=== PATIENT | male | born 1955 | race Caucasian/White ===

== ENCOUNTER 2024-06-25 10:59 | Inpatient (IN) | payer MEDICARE ==
[~2024-06-25] VITALS: Ht 177.8 cm; Wt 89.8 kg
[2024-06-25] VITALS (22 sets, daily range): BP systolic 105–127; BP diastolic 76–99; PULSE 79–141; RESP 16–25; TEMP 97.8–100.6; O2SAT 90–97
[2024-06-25] MEDS ORDERED: LEVOFLOXACIN 750MG/D5W 150ML IV ONE (11:45)
[2024-06-25 12:04] LABS: BASOPHILS # (AUTO) 0.1 (0.0-0.1); BASOPHILS % 0.8 % (0.0-1.0); EOSINOPHILS % 0.2 % (0.0-6.0); HEMOGLOBIN 13.9 g/dL (14.0-18.0); LYMPHOCYTES # (AUTO) 0.2 (1.0-3.2); LYMPHOCYTES % 3.8 % (18.0-39.1); MEAN CORPUSCULAR HEMOGLOBIN 31.1 pg (28-32); MEAN CORPUSCULAR HGB CONC 32.3 g/dL (31-35); MEAN CORPUSCULAR VOLUME 96.2 fL (81-99); MONOCYTES # (AUTO) 0.6 (0.2-0.8); MONOCYTES % 9.2 % (4.4-11.3); NEUTROPHILS # (AUTO) 5.2 (2.1-6.9); NEUTROPHILS % 85.7 % (38.7-80.0); PLATELET COUNT 227 x10e3/uL (140-360); RED BLOOD COUNT 4.47 x10e6/uL (4.3-5.7); RED CELL DISTRIBUTION WIDTH 13.1 % (11.7-14.4); WHITE BLOOD COUNT 6.08 x10e3/uL (4.8-10.8)
[2024-06-25 12:18] LABS: INR 1.29; PROTHROMBIN TIME 16.8 seconds (11.9-14.5)
[2024-06-25 12:19] LABS: PARTIAL THROMBOPLASTIN TIME 40.5 seconds (23.8-35.5)
[2024-06-25 12:28] LABS: ALBUMIN 4.2 g/dL (3.5-5.0); ALBUMIN/GLOBULIN RATIO 1.3 (0.8-2.0); ANION GAP 17.6 mmol/L (8-16); BILIRUBIN,TOTAL 0.8 mg/dL (0.2-1.2); CALCIUM 9.6 mg/dL (8.4-10.2); CREATININE, SERUM 1.06 mg/dL (0.72-1.25); POTASSIUM 3.6 mmol/L (3.5-5.1); TOTAL PROTEIN 7.5 g/dL (6.5-8.1)
[2024-06-25] MEDS: DILTIAZEM HCL 5 MG/ML 5 ML VIAL IV ONE (12:28)
[2024-06-25] MEDS: ACETAMINOPHEN 325 MG TAB PO ONE (12:33)
[2024-06-25] MEDS: METHYLPREDNISOLONE SOD SUCC 125 MG/2ML VIAL IV ONE (12:33)
[2024-06-25] MEDS: SODIUM CHLORIDE 0.9% 1000ML 1,000 ML IV ONE (12:33)
[2024-06-25] MEDS: LEVOFLOXACIN 750MG/D5W 150ML 150 ML IV ONE (12:34)
[2024-06-25 12:41] LABS: CORONAVIRUS COVID-19 AG NEGATIVE (NEGATIVE); INFLUENZA A AG POSITIVE (NEGATIVE); INFLUENZA B AG NEGATIVE (NEGATIVE)
[2024-06-25] MEDS: ALBUTEROL/IPRATROPIUM 3 ML NEB NEB ONE (12:43)
[2024-06-25] MEDS ORDERED: SODIUM CHLORIDE FLUSH 10 ML SYR INJ PRN (13:15)
[2024-06-25] MEDS ORDERED: ONDANSETRON HCL INJ 2MG/ML 2ML 2 MG/ML VIAL IV PRN (13:15)
[2024-06-25] MEDS: TRAMADOL HCL 50 MG TAB PO ONE (13:48)
[2024-06-25] MEDS: DILTIAZEM HCL 125 ML IV SCH (13:50)
[2024-06-25] MEDS ORDERED: BENZONATATE 100 MG CAP PO PRN (15:00)
[2024-06-25] MEDS: IPRATROPIUM BROMIDE 0.02% 2.5 ML NEB NEB SCH (15:00)
[2024-06-25] MEDS ORDERED: ACETAMINOPHEN 325 MG TAB PO PRN (15:00)
[2024-06-25] MEDS ORDERED: DOCUSATE SODIUM 100 MG CAP PO PRN (15:15)
[2024-06-25 17:02] LABS: BILIRUBIN,URINE NEGATIVE (NEGATIVE); CLARITY,URINE CLEAR (CLEAR); COLOR,URINE YELLOW (YELLOW); GLUCOSE, URINE NEGATIVE (NEGATIVE); KETONES,URINE 2+ (NEGATIVE); LEUKOCYTE ESTERASE ,URINE NEGATIVE (NEGATIVE); NITRITE,URINE NEGATIVE (NEGATIVE); PH,URINE 5.5 (5 - 7); PROTEIN,URINE DIPSTICK NEGATIVE (NEGATIVE); URINE UROBILINOGEN 0.2 mg/dL (0.2 - 1)
[2024-06-25 17:13] LABS: BACTERIA,URINE RARE /HPF; EPITHELIAL CELLS,URINE RARE /LPF; MUCUS,URINE FEW (RARE); RBC,URINE 0-5 /HPF (0-5); WBC,URINE (MAN) 0-5 /HPF (0-5)
[2024-06-25] MEDS: MUPIROCIN 2% OINT 22 GM TUBE TOP SCH (17:22)
[2024-06-25] MEDS: POTASSIUM CHLORIDE 20 MEQ TAB CR PO ONE (17:24)
[2024-06-25] MEDS: METOPROLOL TARTRATE 50 MG TAB PO SCH (17:25)
[2024-06-25] MEDS ORDERED: METOPROLOL TART50 MG PO (18:04)
[2024-06-25] MEDS ORDERED: DUPIXENT200 MG/1.1 (18:04)
[2024-06-25] MEDS ORDERED: ATORVASTATIN CA20 MG PO (18:04)
[2024-06-25] MEDS ORDERED: ELIQUIS5 MG PO (18:04)
[2024-06-25] MEDS: BUDESONIDE 0.5MG/2 ML NEB INH SCH (18:45)
[2024-06-25] MEDS: OSELTAMIVIR PHOSPHATE 75 MG CAP PO SCH (21:00)
[2024-06-25] MEDS: BENZONATATE 100 MG CAP PO SCH (21:00)
[2024-06-25] MEDS: ENOXAPARIN SOD INJ 60 MG/0.6 ML SYR SC SCH (21:17)
[2024-06-26] VITALS (61 sets, daily range): BP systolic 93–136; BP diastolic 71–101; PULSE 26–129; RESP 18–31; TEMP 97.6–98.4; O2SAT 89–100
[2024-06-26 06:44] LABS: BASOPHILS % 0.1 % (0.0-1.0); HEMATOCRIT 39.8 % (38.2-49.6); HEMOGLOBIN 12.8 g/dL (14.0-18.0); LYMPHOCYTES # (AUTO) 0.3 (1.0-3.2); LYMPHOCYTES % 3.3 % (18.0-39.1); MEAN CORPUSCULAR HEMOGLOBIN 30.8 pg (28-32); MEAN CORPUSCULAR HGB CONC 32.2 g/dL (31-35); MEAN CORPUSCULAR VOLUME 95.9 fL (81-99); MONOCYTES # (AUTO) 0.4 (0.2-0.8); MONOCYTES % 3.7 % (4.4-11.3); NEUTROPHILS # (AUTO) 9.1 (2.1-6.9); NEUTROPHILS % 92.5 % (38.7-80.0); PLATELET COUNT 220 x10e3/uL (140-360); RED BLOOD COUNT 4.15 x10e6/uL (4.3-5.7); RED CELL DISTRIBUTION WIDTH 13.2 % (11.7-14.4); WHITE BLOOD COUNT 9.79 x10e3/uL (4.8-10.8)
[2024-06-26 07:12] LABS: ALBUMIN 3.5 g/dL (3.5-5.0); ALBUMIN/GLOBULIN RATIO 1.3 (0.8-2.0); ANION GAP 15.7 mmol/L (8-16); BILIRUBIN,TOTAL 0.5 mg/dL (0.2-1.2); CALCIUM 9.1 mg/dL (8.4-10.2); CREATININE, SERUM 0.86 mg/dL (0.72-1.25); POTASSIUM 3.7 mmol/L (3.5-5.1); TOTAL PROTEIN 6.2 g/dL (6.5-8.1)
[2024-06-26 07:31] LABS: MAGNESIUM 1.7 MG/DL (1.3-2.1)
[2024-06-26 07:53] LABS: THYROID STIMULATING HORMONE 0.269 uIU/mL (0.350-4.940)
[2024-06-26] MEDS ORDERED: MAGNESIUM SULFATE 2GM/50ML IV ONE (09:15)
[2024-06-26] MEDS: APIXABAN 5 MG TABLET PO SCH (09:33)
[2024-06-26] MEDS: MAGNESIUM SULFATE 2GM/50ML 50 ML IV ONE (09:35)
[2024-06-26] MEDS: METOPROLOL TARTRATE 50 MG TAB PO SCH (17:12)
[2024-06-27] VITALS (43 sets, daily range): BP systolic 110–136; BP diastolic 75–105; PULSE 80–116; RESP 13–25; TEMP 97.9–98; O2SAT 92–100
[2024-06-27] MEDS: METOPROLOL TARTRATE INJ 1 MG/ML VIAL IV PRN (02:40)
[2024-06-27] MEDS ORDERED: IOPAMIDOL 370 MG/ML 100 ML INFUS..BTL INJ ONE (09:10)
[2024-06-27] MEDS ORDERED: SODIUM CHLORIDE 0.9% 250ML 250 ML ONE (15:12)
[2024-06-27] MEDS: HYDRALAZINE HCL 20 MG/ML VIAL IV PRN (17:44)
[2024-06-28] VITALS (23 sets, daily range): BP systolic 107–142; BP diastolic 85–103; PULSE 71–116; RESP 14–28; TEMP 98–98.3; O2SAT 93–100
[2024-06-28] MEDS: DIGOXIN 0.125 MG TAB PO SCH (14:40)
[2024-06-28] MEDS: ENOXAPARIN SOD INJ 60 MG/0.6 ML SYR SC SCH (20:26)
[2024-06-28] MEDS ORDERED: ENOXAPARIN SOD INJ 40 MG/0.4 ML SYR SC SCH (21:00)
[2024-06-29] VITALS (10 sets, daily range): BP systolic 121–133; BP diastolic 84–97; PULSE 93–117; RESP 18–20; TEMP 97.2–98.2; O2SAT 94–97
[2024-06-30] VITALS (14 sets, daily range): BP systolic 109–133; BP diastolic 84–109; PULSE 73–122; RESP 18–22; TEMP 97.7–98.9; O2SAT 95–100
[2024-06-30] MEDS: LEVALBUTEROL HCL SOLN NEBU 1.25 MG/3 ML NEB INH PRN (05:45)
[2024-06-30 07:10] LABS: BASOPHILS % 0.6 % (0.0-1.0); EOSINOPHILS # (AUTO) 0.1 (0.0-0.4); EOSINOPHILS % 1.6 % (0.0-6.0); HEMATOCRIT 42.8 % (38.2-49.6); HEMOGLOBIN 13.9 g/dL (14.0-18.0); LYMPHOCYTES % 19.9 % (18.0-39.1); MEAN CORPUSCULAR HGB CONC 32.5 g/dL (31-35); MEAN CORPUSCULAR VOLUME 95.5 fL (81-99); MONOCYTES # (AUTO) 0.6 (0.2-0.8); MONOCYTES % 12.6 % (4.4-11.3); NEUTROPHILS # (AUTO) 3.3 (2.1-6.9); NEUTROPHILS % 64.1 % (38.7-80.0); PLATELET COUNT 215 x10e3/uL (140-360); RED BLOOD COUNT 4.48 x10e6/uL (4.3-5.7); RED CELL DISTRIBUTION WIDTH 12.8 % (11.7-14.4); WHITE BLOOD COUNT 5.08 x10e3/uL (4.8-10.8)
[2024-06-30 07:42] LABS: ANION GAP 18.4 mmol/L (8-16); CALCIUM 8.9 mg/dL (8.4-10.2); CREATININE, SERUM 0.84 mg/dL (0.72-1.25)
[2024-06-30 07:48] LABS: POTASSIUM 3.4 mmol/L (3.5-5.1)
[2024-06-30] MEDS: POTASSIUM CHLORIDE 10MEQ EA PO ONE (10:36)
[2024-07-01] VITALS (10 sets, daily range): BP systolic 109–136; BP diastolic 62–96; PULSE 76–107; RESP 17–20; TEMP 97.8–98.6; O2SAT 93–100
[2024-07-02] VITALS (12 sets, daily range): BP systolic 100–119; BP diastolic 77–94; PULSE 51–119; RESP 18–20; TEMP 98.1–98.6; O2SAT 92–100
[2024-07-02] MEDS: BISACODYL 5 MG TAB EC PO ONE (08:42)
[2024-07-02] MEDS: PEG (High)/E-LYTE SOLN 4,000 ML BTL PO ONE (08:43)
[2024-07-03] VITALS (10 sets, daily range): BP systolic 102–125; BP diastolic 72–87; PULSE 85–111; RESP 15–22; TEMP 97.7–98.4; O2SAT 95–99
[2024-07-03 06:28] LABS: BASOPHILS % 0.8 % (0.0-1.0); EOSINOPHILS # (AUTO) 0.2 (0.0-0.4); HEMATOCRIT 40.3 % (38.2-49.6); HEMOGLOBIN 13.8 g/dL (14.0-18.0); LYMPHOCYTES # (AUTO) 1.4 (1.0-3.2); LYMPHOCYTES % 27.4 % (18.0-39.1); MEAN CORPUSCULAR HEMOGLOBIN 30.7 pg (28-32); MEAN CORPUSCULAR HGB CONC 34.2 g/dL (31-35); MEAN CORPUSCULAR VOLUME 89.6 fL (81-99); MONOCYTES # (AUTO) 0.6 (0.2-0.8); MONOCYTES % 11.8 % (4.4-11.3); NEUTROPHILS # (AUTO) 2.7 (2.1-6.9); NEUTROPHILS % 55.2 % (38.7-80.0); PLATELET COUNT 249 x10e3/uL (140-360); RED CELL DISTRIBUTION WIDTH 12.8 % (11.7-14.4); WHITE BLOOD COUNT 4.92 x10e3/uL (4.8-10.8)
[2024-07-03 06:52] LABS: ANION GAP 15.5 mmol/L (8-16); CALCIUM 8.9 mg/dL (8.4-10.2); CREATININE, SERUM 0.83 mg/dL (0.72-1.25); POTASSIUM 3.5 mmol/L (3.5-5.1)
[2024-07-03] MEDS ORDERED: LIDOCAINE HCL 2% LOCAL INJ 5 ML SDV VIAL INJ ONE (12:59)
[2024-07-03] MEDS ORDERED: PROPOFOL IV EMULSION 10 MG/ML 20 ML VIAL ONE (13:00)
[2024-07-03] MEDS ORDERED: PROPOFOL IV EMULSION 50 ML IV ONE (13:00)
[2024-07-03] MEDS ORDERED: PHENYLEPHRINE HCL 1% 10 MG/ML VIAL ONE (13:39)
[2024-07-04] VITALS (7 sets, daily range): BP systolic 92–130; BP diastolic 70–83; PULSE 81–117; RESP 18–20; TEMP 97.5–98.1; O2SAT 94–99
[2024-07-04 05:45] LABS: BASOPHILS % 0.7 % (0.0-1.0); EOSINOPHILS # (AUTO) 0.1 (0.0-0.4); EOSINOPHILS % 2.4 % (0.0-6.0); HEMATOCRIT 39.4 % (38.2-49.6); HEMOGLOBIN 13.4 g/dL (14.0-18.0); LYMPHOCYTES # (AUTO) 1.3 (1.0-3.2); LYMPHOCYTES % 22.4 % (18.0-39.1); MEAN CORPUSCULAR HEMOGLOBIN 30.8 pg (28-32); MEAN CORPUSCULAR VOLUME 90.6 fL (81-99); MONOCYTES # (AUTO) 0.6 (0.2-0.8); MONOCYTES % 9.6 % (4.4-11.3); NEUTROPHILS # (AUTO) 3.8 (2.1-6.9); NEUTROPHILS % 64.2 % (38.7-80.0); PLATELET COUNT 227 x10e3/uL (140-360); RED BLOOD COUNT 4.35 x10e6/uL (4.3-5.7); RED CELL DISTRIBUTION WIDTH 12.7 % (11.7-14.4); WHITE BLOOD COUNT 5.93 x10e3/uL (4.8-10.8)
== END 2024-07-04 10:15 | disposition home or self-care (01) | DRG 193 ==
LOC: ER 11:28 → ERHOLD 13:13 → ICU 15:03 → MED/SURG3 06-28 15:19
PROVIDERS: ADMIT Internal Medicine; ATTEND Internal Medicine
PROC: 0DBN8ZZ Excision of Sigmoid Colon, Via Natural or Artificial Opening Endoscopic (ICD-10-PCS; 2024-07-03)
PROC: 0DBK8ZZ Excision of Ascending Colon, Via Natural or Artificial Opening Endoscopic (ICD-10-PCS; principal; 2024-07-03 13:22)
PROC: 0DBL8ZZ Excision of Transverse Colon, Via Natural or Artificial Opening Endoscopic (ICD-10-PCS; 2024-07-03 13:22)
DX: J10.00 Influenza due to other identified influenza virus with unspecified type of pneumonia (principal); J96.01 Acute respiratory failure with hypoxia; J45.901 Unspecified asthma with (acute) exacerbation; I48.20 Chronic atrial fibrillation, unspecified; K63.5 Polyp of colon; E87.6 Hypokalemia; D64.9 Anemia, unspecified; K57.30 Diverticulosis of large intestine without perforation or abscess without bleeding; Z79.01 Long term (current) use of anticoagulants; Z87.891 Personal history of nicotine dependence
CPT/HCPCS: 36415; 45384; 45385; 71046; 71250; 74177; 80048; 80053; 81001; 83605; 83735; 84443; 85025; 85610; 85730; 87040; 87086; 88305; 93005; 94799; 99252; 99284; J0360; J0696; J1650; J2003; J2371; J2919; J3475; J7030; J7050; Q9967